=== PATIENT | male | born 1945 | race African-American/Black ===

== ENCOUNTER 2019-07-01 15:37 | Inpatient (IN) | payer OTHER ==
[~2019-07-01] VITALS: Ht 185.4 cm; Wt 88.9 kg
--- NOTE | 2019-07-01 15:42 | NUR ---
PT BIBA TO BED 04.
[2019-07-01 16:20] VITALS: BP 142/78
--- NOTE | 2019-07-01 16:20 | NUR ---
74 Y/O BIB ALS FROM [facility] IN [facility]. STAFF CALLED 911 DUE TO HYPERNATREMIA. PT IS AAOX0. HX DEMENTA. RESP EVEN AND UNLABORED. DENIES CP/SOB. BOWEL SOUNDS NORMO ACTIVE IN ALL QUADRANTS. LUNG SOUNDS CLEAR IN BILAT LOBES. PMH: ESRD, DM, DEMENTA, CVA, RIGHT SIDED WEAKNESS.
--- NOTE | 2019-07-01 17:10 | NUR ---
Note undone in EDM - 07/01/19 at 1711 by [email or web address] 74 Y/O BIB ALS FROM [facility] IN [facility]. STAFF CALLED 911 DUE TO HYPERNATREMIA. PT IS AAOX0. HX DEMENTA. RESP EVEN AND UNLABORED. DENIES CP/SOB. BOWEL SOUNDS NORMO ACTIVE IN ALL QUADRANTS. LUNG SOUNDS CLEAR IN BILAT LOBES. PMH: ESRD, DM, DEMENTA, CVA, RIGHT SIDED WEAKNESS.
--- NOTE | 2019-07-01 17:35 | NUR ---
ATTEMPTED STRAIGHT CATHETERIZATION TO OBTAIN URINE SAMPLE. RESISTANCE MET AND UNABLE TO COLLECT URINE. ERMD NOTIFED. NO FURTHER ACTION ORDERED.
--- NOTE | 2019-07-01 17:54 | NUR ---
PT LAYING IN BED. RESP EVEN AND UNLABORED. EYES OPEN SPONTANEOUSLY. VSS. ALL NEEDS MET AT THIS TIME.
--- NOTE | 2019-07-01 17:56 | NUR ---
ASSUMED CARE OF PT FROM DERRICK JOHNSON.
[2019-07-01 18:10] LABS: BASOPHILS % (AUTO) 0.5 % (0.0-2.0); EOSINOPHILS % (AUTO) 0.3 % (0.0-4.0); HEMATOCRIT 46.2 % (36-52); HEMOGLOBIN 14.7 g/dL (12.0-18.0); LYMPHOCYTES % (AUTO) 13.9 % (20.5-51.1); MEAN CORPUSCULAR HEMOGLOBIN 28 pg (27-31); MEAN CORPUSCULAR HGB CONC 32 g/dL (33-37); MEAN CORPUSCULAR VOLUME 89.1 fL (80-94); MONOCYTES # (AUTO) 0.3 K/uL (0.8-1.0); MONOCYTES % (AUTO) 4.6 % (1.7-9.3); NEUTROPHILS % (AUTO) 80.7 % (42.2-75.2); PLATELET COUNT (AUTO) 173 K/uL (140-450); RED BLOOD CELL COUNT(AUTO) 5.19 MIL/uL (4.20-6.10); RED CELL DISTRIBUTION WIDTH 16.2 % (11.6-13.7); WHITE BLOOD COUNT (AUTO) 7.5 K/uL (4.8-10.8)
[2019-07-01 18:35] LABS: ALBUMIN 2.6 g/dL (3.4-5.0); ASPARTATE AMINOTRANSFERASE 19 U/L (15-37); CARBON DIOXIDE 24.4 mmol/L (21-32); CHLORIDE 128 mmol/L (98-107); CREATININE 3.2 mg/dL (0.6-1.3); GLUCOSE 345 mg/dL (74-106); POTASSIUM 4.4 mmol/L (3.5-5.1); TOTAL BILIRUBIN 0.2 mg/dL (0.0-1.0)
[2019-07-01 18:38] LABS: PROTHROMBIN TIME 10.3 secs (10.8-13.4)
[2019-07-01 18:40] LABS: SODIUM SERUM 165 mmol/L (136-145); UREA NITROGEN, BLOOD 96 mg/dL (7-18)
--- NOTE | 2019-07-01 18:56 | NUR ---
PT REMAINS IN BED--VSS. NO DISTRESS.
[2019-07-01] MEDS ORDERED: ONDANSETRON 4 MG/2 ML VIAL IVP PRN (19:05)
[2019-07-01] MEDS ORDERED: ACETAMINOPHEN 325 MG TAB PO PRN (19:05)
[2019-07-01] MEDS ORDERED: NACL 0.45% 1,000 ML IV ONE (19:05)
[2019-07-01] MEDS ORDERED: INSULIN REGULAR, HUMAN 100 UNIT/ML VIAL SUBQ ONE (19:10)
[2019-07-01] MEDS ORDERED: NACL 0.9% 500 ML IV ONE (19:10)
[2019-07-01] MEDS ORDERED: ASPIRIN 81 MG TAB.CHEW PO ONE (19:10)
--- NOTE | 2019-07-01 19:10 | NUR ---
REPORT TO DERRICK GOLDSMITH AND DERRICK RODRIGUEZ. ALL CARE TRANSFERRED AT THIS TIME.
[2019-07-01] MEDS ORDERED: DEXTROSE 5% 1,000 ML IV ONE (19:15)
[2019-07-01 19:44] LABS: FREE T4 (FREE THYROXINE) 0.93 ng/dL (0.76-1.46); MAGNESIUM 2.6 mg/dL (1.8-2.4); PHOSPHORUS 4.3 mg/dL (2.5-4.9); THYROID STIMULATING HORMONE 1.23 uIU/mL (0.34-3.74)
--- NOTE | 2019-07-01 20:00 | NUR ---
RECEIVED BEDSIDE REPORT FROM ED NURSE MICHAEL. PATIENT WAS BROUGHT INTO UNIT VIA GURNEY. NO SOB OR DISTRESS NOTED. ON ROOM AIR. PATIENT IS BEDBOUND. IV ACCESS ON LEFT AC 20 GAUGE, PATENT, INTACT AND INFUSING WELL. PATIENT IS APHASIC. MRSA NARES DONE AND SENT TO LAB. INITIAL ASSESSMENT DONE. SKIN IS INTACT. PATIENT IS NOTED WITH ANKLE MONITOR ON RIGHT ANKLE. BED IN LOW, SAFETY MEASURES IN PLACE. CALL LIGHT PLACED WITHIN PATIENT REACH. WILL CONTINUE TO MONITOR PATIENT.
--- NOTE | 2019-07-01 20:22 | NUR ---
Patient will be admitted to care of DR. BUCKLEY. Admited to MED-SURG. Will go to room 110-A. Belongings list completed. Report to DERRICK HERNANDEZ.
[2019-07-01] MEDS: BLOOD GLUCOSE MONITORING 1 DEV DEV FS SCH (21:00)
[2019-07-01] MEDS ORDERED: CHOL200074 PO ×2 (21:04→21:20)
[2019-07-01] MEDS ORDERED: FINA5TAB1 PO (21:04)
[2019-07-01] MEDS ORDERED: ORE25 PO (21:04)
[2019-07-01] MEDS ORDERED: SULF-47 PO (21:04)
[2019-07-01] MEDS ORDERED: HYDR25SU37 RC ×2 (21:04→21:20)
[2019-07-01] MEDS ORDERED: APIX5TAB PO (21:04)
[2019-07-01] MEDS ORDERED: FAMO20TA13 PO (21:04)
[2019-07-01] MEDS ORDERED: CALC500C17 PO ×2 (21:04→21:20)
[2019-07-01] MEDS ORDERED: INSU-1163 SQ (21:04)
[2019-07-01] MEDS ORDERED: INSU100S22 SUBQ (21:04)
[2019-07-01] MEDS ORDERED: MIRABULK PO ×2 (21:04→21:20)
[2019-07-01] MEDS ORDERED: SULF-58 PO (21:04)
[2019-07-01] MEDS ORDERED: SENN-46 PO (21:04)
[2019-07-01] MEDS ORDERED: DEC1 PO ×2 (21:04→21:20)
[2019-07-01] MEDS ORDERED: HYDROCORTISONE SUPPOSITORY 25 MG SUPP RC SCH (21:10)
[2019-07-01] MEDS ORDERED: CALCIUM CARBONATE 500 MG TAB.CHEW PO PRN (21:10)
[2019-07-01] MEDS ORDERED: SULF-59 PO (21:20)
[2019-07-01] MEDS: DOCUSATE SODIUM 100 MG GELCAP PO SCH (21:22)
[2019-07-01] MEDS: INSULIN LISPRO SLIDING SCALE 100 UNITS/ML VIAL SUBQ PRN (22:50)
--- NOTE | 2019-07-01 22:50 | NUR ---
PATIENT HAD A BLOOD GLUCOSE RESULT OF 154 WITH 2 UNITS OF REGULAR HUMALOG INSULIN ADMINISTERED. WILL CONTINUE TO MONITOR PATIENT.
[2019-07-01 23:16] LABS: CARBON DIOXIDE 27.5 mmol/L (21-32); CHLORIDE 129 mmol/L (98-107); CREATININE 3.2 mg/dL (0.6-1.3); GLUCOSE 197 mg/dL (74-106); POTASSIUM 4.5 mmol/L (3.5-5.1)
[2019-07-01] MEDS: INSULIN LANTUS 100 UNITS/ML 10 ML VIAL SUBQ SCH (23:31)
[2019-07-02] VITALS: BP 135/89
--- NOTE | 2019-07-02 | NUR ---
VITALS DONE. NO SOB OR DISTRESS NOTED. WILL CONTINUE TO MONITOR PATIENT.
--- NOTE | 2019-07-02 00:07 | NUR ---
CODI FROM LAB CALLED WITH CRITICAL LAB OF TROPONIN-0.077, SODIUM-168 AND BUN-90. MADE AWARE. WILL CONTINUE TO MONITOR PATIENT.
[2019-07-02 00:08] LABS: SODIUM SERUM 168 mmol/L (136-145); UREA NITROGEN, BLOOD 90 mg/dL (7-18)
[2019-07-02] MEDS: DEXTROSE 5% 1,000 ML IV SCH ×3 (00:10→16:14)
--- NOTE | 2019-07-02 02:45 | NUR ---
ROUNDS DONE. VISIBLE CHEST RISE AND FALL NOTED. CALL LIGHT WITHIN PATIENT REACH. WILL CONTINUE TO MONITOR PATIENT.
--- NOTE | 2019-07-02 06:16 | NUR ---
DEXTROSE 50% GIVEN AT THIS TIME FOR BLOOD GLUCOSE RESULT OF 55. WILL CONTINUE TO MONITOR PATIENT. Addendum: 07/02/19 at 0621 by Mabel Addison RN MD DR. RANDOLPH MADE AWARE.
[2019-07-02] MEDS: DEXTROSE 50% 50 ML SYR IVP PRN (06:18)
[2019-07-02] MEDS: BLOOD GLUCOSE MONITORING 1 DEV DEV FS SCH ×4 (06:52→21:31)
--- NOTE | 2019-07-02 06:52 | NUR ---
RECHECKED PATIENTS BLOOD GLUCOSE WITH RESULT OF 122. PATIENT IN STABLE CONDITION. WILL CONTINUE TO MONITOR PATIENT.
--- NOTE | 2019-07-02 06:53 | NUR ---
PATIENT IN STABLE CONDITION. VISIBLE CHEST RISE AND FALL NOTED. NO DISTRESS NOTED. CALL LIGHT WITHIN PATIENT REACH. WILL ENDORSE TO AM SHIFT NURSE FOR CONTINUITY OF CARE.
--- NOTE | 2019-07-02 07:10 | NUR ---
RECEIVED REPORT FROM ROLLER MECHANIC NURSE. PATIENT IS AWAKE AND ALERT IN BED WITH NO SIGNS OF DISTRESS. RESPIRATIONS ARE EVEN AND UNLABORED AND PT IS ON ROOM AIR. SKIN IS INTACT WITH L. AC 20 GAUGE IV. IV SITE IS PATENT AND ASYMPTOMATIC WITH FLUIDS RUNNING PER ORDER. BED IS IN LOW, SEMI-FOWLERS WITH SAFETY MEASURES IN PLACE, CALL LIGHT WITHIN REACH, AND WILL CONTINUE TO MONITOR.
[2019-07-02] MEDS ORDERED: HYDROCORTISONE SUPPOSITORY 25 MG SUPP RC PRN (07:33)
[2019-07-02 07:48] LABS: BASOPHILS # (AUTO) 0.1 K/uL (0.00-0.22); BASOPHILS % (AUTO) 0.9 % (0.0-2.0); EOSINOPHILS % (AUTO) 0.4 % (0.0-4.0); HEMATOCRIT 44.2 % (36-52); HEMOGLOBIN 14.1 g/dL (12.0-18.0); LYMPHOCYTES # (AUTO) 1.2 K/uL (2.0-11.5); LYMPHOCYTES % (AUTO) 16.3 % (20.5-51.1); MEAN CORPUSCULAR HEMOGLOBIN 28 pg (27-31); MEAN CORPUSCULAR HGB CONC 32 g/dL (33-37); MEAN CORPUSCULAR VOLUME 88.8 fL (80-94); MONOCYTES # (AUTO) 0.4 K/uL (0.8-1.0); MONOCYTES % (AUTO) 5.1 % (1.7-9.3); NEUTROPHILS # (AUTO) 5.6 K/uL (1.8-7.7); NEUTROPHILS % (AUTO) 77.3 % (42.2-75.2); PLATELET COUNT (AUTO) 164 K/uL (140-450); RED BLOOD CELL COUNT(AUTO) 4.98 MIL/uL (4.20-6.10); RED CELL DISTRIBUTION WIDTH 16.2 % (11.6-13.7); WHITE BLOOD COUNT (AUTO) 7.2 K/uL (4.8-10.8)
--- NOTE | 2019-07-02 08:14 | NUR ---
PATIENT HAS BEEN SCREENED AND CATEGORIZED HIGH NUTRITION RISK. PATIENT WILL BE SEEN WITHIN 1-2 DAYS OF ADMISSION. 07/02/19-07/03/[address]
[2019-07-02 08:29] LABS: CHOL/HDL RATIO 3.7 (1-4.5); MAGNESIUM 2.6 mg/dL (1.8-2.4); PHOSPHORUS 4.4 mg/dL (2.5-4.9)
[2019-07-02 08:38] LABS: ANION GAP 12.2 (8-16); CARBON DIOXIDE 28.5 mmol/L (21-32); CHLORIDE 130 mmol/L (98-107); GLUCOSE 145 mg/dL (74-106); POTASSIUM 3.7 mmol/L (3.5-5.1)
--- NOTE | 2019-07-02 08:44 | NUR ---
CRITICAL LAB: NA IS 167, BUN IS 82. WILL INFORM RESIDENT DOCTOR
[2019-07-02 08:45] LABS: SODIUM SERUM 167 mmol/L (136-145)
[2019-07-02 08:46] LABS: UREA NITROGEN, BLOOD 82 mg/dL (7-18)
[2019-07-02] MEDS: POLYETHYLENE GLYCOL 17 GM/PKT PO SCH (09:00)
[2019-07-02] MEDS ORDERED: DEXAMETHASONE 1 MG TAB PO SCH ×2 (09:00→13:00)
[2019-07-02] MEDS ORDERED: HYDROCHLOROTHIAZIDE 25 MG TAB PO SCH (09:00)
[2019-07-02] MEDS: SENNA 8.6 MG TAB PO SCH ×2 (09:34→21:30)
[2019-07-02] MEDS: DOCUSATE SODIUM 100 MG GELCAP PO SCH ×2 (09:34→21:30)
[2019-07-02] MEDS: FINASTERIDE 5 MG TAB PO SCH (09:34)
[2019-07-02] MEDS: CHOLECALCIFEROL 1,000 IU TAB PO SCH (09:34)
[2019-07-02] MEDS: PSYLLIUM 12.2 GM/PKT PO SCH (09:35)
[2019-07-02] MEDS: APIXABAN 2.5 MG TAB PO SCH ×2 (09:36→21:32)
--- NOTE | 2019-07-02 09:36 | NUR ---
GIVEN MORNING MEDICATIONS. PATIENT REFUSED HEPARIN, METAMUCIL. DECADRON IS UNAVAILABLE. PHARMACY AWARE. DR. LANGFORD IS AWARE
--- NOTE | 2019-07-02 11:00 | NUR ---
CALLED PHARMACY REGARDING'S PATIENT' GABRIEL DEXAMETHASONE. MS. DAVIS STATED THAT THEY BORROWED ONE FROM [facility]. ONCE THE MEDICATION IS AVAILABLE, THEY WILL CHANGE SCHEDULED TIME
--- NOTE | 2019-07-02 11:20 | NUR ---
BLOOD SUGAR CHECK: 207. WILL GIVE INSULIN COVERAGE
[2019-07-02] MEDS: INSULIN LISPRO SLIDING SCALE 100 UNITS/ML VIAL SUBQ PRN ×2 (11:22→21:39)
--- NOTE | 2019-07-02 11:24 | NUR ---
ADMINISTERED MEDICATION PER PARAMETER ORDER AND TOLERATED WELL. PT IS AWAKE IN BED WITH NO COMPLAINTS OF PAIN. SAFETY MEASURES IN PLACE, CALL LIGHT WITHIN REACH, AND WILL CONTINUE TO MONITOR.
--- NOTE | 2019-07-02 11:51 | NUR ---
Analytics Director Note: Patient is a 74-year-old male admitted for hypernatremia. Patient has CVA w/ right hemiplegia, diabetes, dementia, and hypertension. Patient was admitted from [facility]. FERNANDO contacted Rissa from admissions [phone] and left . FERNANDO will follow up.
[2019-07-02 12:00] VITALS: BP 137/87
[2019-07-02 12:35] LABS: ANION GAP 13.8 (8-16); CARBON DIOXIDE 26.1 mmol/L (21-32); CHLORIDE 130 mmol/L (98-107); GLUCOSE 135 mg/dL (74-106); POTASSIUM 3.9 mmol/L (3.5-5.1)
[2019-07-02 12:38] LABS: SODIUM SERUM 166 mmol/L (136-145); UREA NITROGEN, BLOOD 79 mg/dL (7-18)
--- NOTE | 2019-07-02 12:38 | NUR ---
CRITICAL LAB: SODIUM 166. WILL INFORM RESIDENT
--- NOTE | 2019-07-02 13:04 | NUR ---
CALLED CALLIE ARROYO BUT NO ANSWER. THIS IS REGARDING ADMISSION PAPERWORK. WILL TRY AGAIN
--- NOTE | 2019-07-02 13:05 | NUR ---
*S.T. BEDSIDE SWALLOW EVAL COMPLETED* Pt presents w/ moderate oropharyngeal dysphagia c/b prolonged mastication of solids with residue on R side of oral cavity. Delayed pharyngeal swallow initiation observed across all textures. No coughing/choking/wet voice after swallows.Pt has strong desire to self-feed but has difficulty w/ limited LUE ROM. With time and allowing pt to try, he is able to self-feed and prefers to drink from a cup w/o straw. Recommend: 1) Downgrade diet texture to Mechanical soft ground diet, thin liquids okay. No straws. 2) P.O. meds whole one at a time. 3) Nsg to assist pt w/ positioning and tray set up to promote self-feeding w/ LUE. No further tx indicated at this time. DC to nsg care. Endorsed to DERRICK Orta. TIME [id number]
--- NOTE | 2019-07-02 13:11 | NUR ---
MR. DINA LEDESMA, HANDSTITCHING MACHINE ARMHOLE FELLER, STATED TO CALL SARAN CHRISTIE FOR CONTACT INFORMATION OF FAMILY OF THE PATIENT WHO WILL BE ABLE TO SIGN ADMISSION PAPERWORK
--- NOTE | 2019-07-02 13:13 | NUR ---
PT IS AWAKE, ALERT, AND LAYING IN BED. MEDICATIONS ADMINISTERED PER ORDER AND TOLERATED WELL. NO SIGNS OF DISTRESS NOTED USING. SAFETY MEASURES IN PLACE, CALL LIGHT WITHIN REACH, AND WILL CONTINUE TO MONITOR.
--- NOTE | 2019-07-02 13:19 | NUR ---
CALLED JULIO CESAR CHRISTIE. ONE OF THE PERSONNEL STATED THAT THERE IS NO FAMILY MEMBER LISTED IN PATIENT'S CONTACT INFORMATION. WILL INFORM CHARGE NURSE AND ADMITTING.
--- NOTE | 2019-07-02 13:22 | NUR ---
MADE AWARE ADMITTING FRONT LOBBY REGARDING'S PATIENT'S ADMISSION PAPERWORK
--- NOTE | 2019-07-02 13:48 | NUR ---
07/02/19 RD INITIAL ASSESSMENT COMPLETED PLEASE REFER TO NUTRITION ASSESSMENT UNDER CARE ACTIVITY FOR ESTIMATED NUTRITIONAL NEEDS. 1. CONTINUE CCHO 60GM CARDIAC MECHANICAL SOFT/GROUND DIET W/GLUCERNA BID TOLERATED 2. PROVIDE ASSISTANCE POSITIONING FOOD ON TRAY FOR PATIENT TO SELF FEED 3. PROVIDE ASSISTANCE TO FEED PATIENT IF NEEDED 4. RD TO FOLLOW-UP 2-3 DAYS, HIGH RISK BIBIANA CORDERO, NAYA
--- NOTE | 2019-07-02 14:27 | NUR ---
HANG NEW IV BAG OF D5 AT RATE OF 120 ML/HR. PATIENT IS SLEEPING AT THIS TIME. NO SIGNS OF DISTRESS NOTED. BED IN LOW POSITION. CALL LIGHT IS WITHIN REACH. WILL CONTINUE TO MONITOR
[2019-07-02] MEDS ORDERED: NACL 0.45% 1,000 ML IV SCH (15:02)
--- NOTE | 2019-07-02 15:09 | NUR ---
BOLUSED WITH NS 0.45% WIDE OPEN PER DR. MARQUES ORDER. PATIENT IS AWARE THAT I NEED A SAMPLE OF HIS URINE. URINAL AT BEDSIDE
--- NOTE | 2019-07-02 15:18 | NUR ---
ULTRASOUND AT BEDSIDE
--- NOTE | 2019-07-02 16:25 | NUR ---
BLOOD SUGAR CHECK: 84. NO INSULIN COVERAGE. STILL BOLUSING PATIENT WITH 0.45% NS.
--- NOTE | 2019-07-02 16:30 | NUR ---
PLACED URINAL WITH PATIENT FOR URINE SAMPLE
--- NOTE | 2019-07-02 16:34 | NUR ---
PER DR. MARQUES, HOLD DIURETICS BECAUSE PATIENT IS DEHYDRATED
--- NOTE | 2019-07-02 17:00 | NUR ---
PLACED PATIENT BACK TO D5W AT 120 ML/HR. BOLUS IS COMPLETE
--- NOTE | 2019-07-02 17:16 | NUR ---
URINE SAMPLE COLLECTED. SENT TO THE LAB
[2019-07-02 17:33] LABS: APPEARANCE,URINE CLEAR (CLEAR); BILIRUBIN,URINE NEGATIVE (NEGATIVE); BLOOD, URINE 1+ (NEGATIVE); COLOR,URINE YELLOW (YELLOW); LEUKOCYTE ESTERASE ,URINE TRACE (NEGATIVE); NITRITE, URINE NEGATIVE (NEGATIVE); UGLUCOSE NEGATIVE (NEGATIVE)
[2019-07-02 17:51] LABS: RBC,URINE 11-20 (MOD) /HPF (0-5)
--- NOTE | 2019-07-02 19:16 | NUR ---
REPORT GIVEN TO TRANSITIONAL NURSE NURSE. PT IS ASLEEP IN BED WITH NO SIGNS OF DISTRESS NOTED. IVF IS ASYMPTOMATIC AND RUNNING PER ORDERS. PT IS IN STABLE CONDITION WITH SAFETY MEASURES IN PLACE AND CALL LIGHT WITHIN REACH.
--- NOTE | 2019-07-02 19:17 | NUR ---
RECD. RESTING IN BED, AWAKE, A/OX1, RESPIRATION EVEN AND UNLABORED. IV OF DEXTROSE AT 120 ML/HR INFUSING, LEFT AC G20. REORIENTED TO HOSPITAL SETTING. SAFETY MEASURES ENFORCED. SIDE RAILS UP. BED IN THE LOWEST POSITION. BED ON ALARM. PLAN OF CARE DISCUSSED. NEEDS REINFORCEMENT. DENIES PAIN 0/10.
--- NOTE | 2019-07-02 19:40 | NUR ---
SET UP BEDSIDE TABLE WITH FOOD. ENCOURAGED TO EAT. ABLE TO SWALLOW WELL. ABLE TO EAT 60% OF DINNER.
[2019-07-02 20:00] VITALS: BP 136/85
--- NOTE | 2019-07-02 20:00 | NUR ---
Patient's Plan of Care was discussed and reviewed with SEAT INSTALLER: ADEA WILL CONTINUE WITH CURRENT POC.
--- NOTE | 2019-07-02 21:20 | NUR ---
INFORMED DR. BLAKE, PATIENT IS ON HEPARIN AND ELIQUIS, WILL DISCONTINUED HEPARIN.
[2019-07-02] MEDS: FAMOTIDINE 20 MG TAB PO SCH (21:30)
[2019-07-02] MEDS: INSULIN LANTUS 100 UNITS/ML 10 ML VIAL SUBQ SCH (21:34)
--- NOTE | 2019-07-02 21:35 | NUR ---
DUE PO MEDICATIONS GIVEN FOR THE NIGHT. TOLERATED WELL, ATE 100% OF SNACK.
[2019-07-02 21:53] LABS: CREATININE,URINE RANDOM 60 mg/dL (30-125); URINE SODIUM, RANDOM 91 mmol/l (40-220)
--- NOTE | 2019-07-03 | NUR ---
SLEEPING COMFORTABLY IN BED.
--- NOTE | 2019-07-03 01:00 | NUR ---
IV INFILTRATED, NEW IV LINE INSERTED BY CHARGE NURSE ZENON, LEFT HAND G22.
[2019-07-03] MEDS: DEXTROSE 5% 1,000 ML IV SCH ×4 (01:10→18:24)
--- NOTE | 2019-07-03 03:00 | NUR ---
STILL RESTING COMFORTABLY SLEEPING IN BED.
[2019-07-03 04:00] VITALS: BP 137/84
--- NOTE | 2019-07-03 05:00 | NUR ---
CONFUSED, BITE HIS IV LINE, GET DISCONNECTED FROM IV. USPS LETTER CARRIER CHANGED BEDDINGS AND GOWN THAT HAS BEEN WET. MADE COMFORTABLE IN BED.
[2019-07-03] MEDS ORDERED: NACL 0.9% 500 ML IV ONE (05:45)
[2019-07-03] MEDS: BLOOD GLUCOSE MONITORING 1 DEV DEV FS SCH ×4 (05:47→21:01)
[2019-07-03 06:43] LABS: BASOPHILS # (AUTO) 0.1 K/uL (0.00-0.22); EOSINOPHILS # (AUTO) 0.1 K/uL (0-0.4); EOSINOPHILS % (AUTO) 0.9 % (0.0-4.0); HEMATOCRIT 40.4 % (36-52); HEMOGLOBIN 13.2 g/dL (12.0-18.0); LYMPHOCYTES # (AUTO) 1.2 K/uL (2.0-11.5); LYMPHOCYTES % (AUTO) 17.6 % (20.5-51.1); MEAN CORPUSCULAR HEMOGLOBIN 29 pg (27-31); MEAN CORPUSCULAR HGB CONC 33 g/dL (33-37); MEAN CORPUSCULAR VOLUME 87.9 fL (80-94); MONOCYTES # (AUTO) 0.4 K/uL (0.8-1.0); MONOCYTES % (AUTO) 5.5 % (1.7-9.3); PLATELET COUNT (AUTO) 151 K/uL (140-450); RED BLOOD CELL COUNT(AUTO) 4.59 MIL/uL (4.20-6.10); RED CELL DISTRIBUTION WIDTH 15.8 % (11.6-13.7); WHITE BLOOD COUNT (AUTO) 6.6 K/uL (4.8-10.8)
[2019-07-03 06:55] LABS: ANION GAP 13.5 (8-16); CARBON DIOXIDE 24.4 mmol/L (21-32); CHLORIDE 123 mmol/L (98-107); CREATININE 2.5 mg/dL (0.6-1.3); GLUCOSE 105 mg/dL (74-106); POTASSIUM 3.9 mmol/L (3.5-5.1); UREA NITROGEN, BLOOD 58 mg/dL (7-18)
[2019-07-03 07:07] LABS: MAGNESIUM 2.1 mg/dL (1.8-2.4); PHOSPHORUS 3.2 mg/dL (2.5-4.9)
--- NOTE | 2019-07-03 07:29 | NUR ---
CONDITION REMAIN STABLE. SAFETY MAINTAINED DURING SHIFT. ENDORSED TO AM SHIFT NURSE FOR CONTINUITY OF CARE.
--- NOTE | 2019-07-03 07:30 | NUR ---
RECEIVED BEDSIDE SHIFT REPORT FROM SANDER OPERATOR NURSE FOR CONTINUATION OF CARE.
[2019-07-03 07:44] LABS: SODIUM SERUM 157 mmol/L (136-145)
--- NOTE | 2019-07-03 07:58 | NUR ---
Received call from Maggi Puga ([facility] police operations officer afloat) checking on pt's ankle monitor due to battery at 0400 this am. Informed Maggi Puga that no wetland scientist available at bedside. Per Maggi Puga, he will need to bring wetland scientist to hospital. Pt in bed, in no distress at this time.
[2019-07-03] MEDS: POLYETHYLENE GLYCOL 17 GM/PKT PO SCH (09:00)
[2019-07-03] MEDS: PSYLLIUM 12.2 GM/PKT PO SCH (09:00)
[2019-07-03] MEDS ORDERED: SULFAMETH/TRIMETH DS 800/160MG 1 TAB PO SCH (09:00)
[2019-07-03] MEDS: APIXABAN 2.5 MG TAB PO SCH ×2 (09:58→21:03)
--- NOTE | 2019-07-03 10:00 | NUR ---
MEDICATIONS CRUSHED AND ADMINISTERED WITH APPLE SAUCE DUE TO POOR SWALLOW EVAL. PATIENT IS AAOX1/2. PATIENT IS ON HOUSE ARREST AND HAS AN ACTIVE SECURED ANKLE MONITOR. PATIENT DENIES PAIN AT THIS TIME. WILL CONTINUE TO MONITOR.
[2019-07-03] MEDS: DOCUSATE SODIUM 100 MG GELCAP PO SCH ×2 (10:19→21:02)
[2019-07-03] MEDS: SENNA 8.6 MG TAB PO SCH ×2 (10:20→21:03)
[2019-07-03] MEDS: DEXAMETHASONE 1 MG TAB PO SCH (10:20)
[2019-07-03] MEDS: CHOLECALCIFEROL 1,000 IU TAB PO SCH (10:20)
[2019-07-03] MEDS: FINASTERIDE 5 MG TAB PO SCH (10:20)
[2019-07-03] MEDS: INSULIN LISPRO SLIDING SCALE 100 UNITS/ML VIAL SUBQ PRN ×2 (11:53→21:16)
--- NOTE | 2019-07-03 12:06 | NUR ---
DISCHARGE PLANNING: THIS IS A 77 Y/O MALE PATIENT FROM [facility], WHO CAME IN DUE TO HYPERNATREMIA. PAST MEDICAL HISTORY INCLUDE DIABETES, CKD, HTN, DEMENTIA, CEREBRAL NEOPLASM AND CVA WITH RIGHT HEMIPLEGIA. INITIAL DIAGNOSIS OF HYPERNATREMIA. CURRENT LABS INCLUDE WBC 6.6, H/H 13.2/40.4, NA/K 157/3.9, BUN/CREA 58/2.5. ON DECADRON, BACTRIM, ELIQUIS. NEPHRO AND CARDIO CONSULTS IN PLACE. MRSA NARES AND URINE C/S PENDING. DC PLAN BACK TO LONGTERM ONCE STABLE. Addendum: 07/03/19 at 1213 by Edwina Sullivan CM RECEIVED A DC ORDER BACK TO [facility] FOR SATURDAY. CLINICALS FAXED TO [facility]. Addendum: 07/03/19 at 1540 by Arlin Cornelius CM DC PLANNING: DC PLAN FOR SATURDAY PT IS ACCEPTED AT [facility] GOING TO ROOM 33C AUTH # FOR TRANSPORT [id number] ARRANGED TRANSPORT WITH [facility] PLACE IT WILL CALL PLS CALL [phone] WHEN PT HAS A DC ORDER.
--- NOTE | 2019-07-03 13:02 | NUR ---
PATIENT IS RESTING IN BED, CALL LIGHT ON AND WITHIN REACH. WILL CONTINUE TO MONITOR.
[2019-07-03 16:00] VITALS: BP 149/81
--- NOTE | 2019-07-03 16:00 | NUR ---
IV FLUID REPLENISHED, RUNNING AT 120 ML/HR. WILL CONTINUE TO MONITOR.
[2019-07-03 18:23] LABS: ANION GAP 13.4 (8-16); CARBON DIOXIDE 25.5 mmol/L (21-32); CHLORIDE 116 mmol/L (98-107); CREATININE 2.3 mg/dL (0.6-1.3); GLUCOSE 156 mg/dL (74-106); POTASSIUM 3.9 mmol/L (3.5-5.1); SODIUM SERUM 151 mmol/L (136-145); UREA NITROGEN, BLOOD 49 mg/dL (7-18)
--- NOTE | 2019-07-03 19:13 | NUR ---
BEDSIDE SHIFT REPORT GIVEN TO SPRAY DRIER NURSE FOR CONTINUATION OF CARE.
--- NOTE | 2019-07-03 19:14 | NUR ---
BEDSIDE SHIFT REPORT RECEIVED FROM [facility] NURSE CURRY FOR CONTINUITY OF CARE. PATIENT AWAKE IN BED. NO SIGNS OF DISTRESS NOTED. SAFETY MEASURES IN PLACE CALL LIGHT WITHIN REACH
[2019-07-03] MEDS ORDERED: CRUSHER, PILL MC ONE (20:57)
[2019-07-03] MEDS: FAMOTIDINE 20 MG TAB PO SCH (21:03)
[2019-07-03] MEDS: INSULIN LANTUS 100 UNITS/ML 10 ML VIAL SUBQ SCH (21:08)
--- NOTE | 2019-07-03 21:16 | NUR ---
ADMINISTERED 2100 MEDICATIONS TO PT WELL 8 UNITS INSULIN COVERAGE FOR BS 331. PT TOLERATED WELL. NO SIGNS OF DISTRESS NOTED. WILL CONTINUE TO MONITOR
--- NOTE | 2019-07-03 23:16 | NUR ---
ROUNDING. PT SLEEPING. EASILY AROUSABLE. NO SIGNS OF DISTRESS NOTED. SAFETY MEASURES IN PLACE. BED ALARM ACTIVE. WILL CONTINUE TO MONITOR
[2019-07-04] VITALS: BP 155/77
[2019-07-04] MEDS: DEXTROSE 5% 1,000 ML IV SCH ×3 (02:10→18:50)
--- NOTE | 2019-07-04 02:49 | NUR ---
ROUNDING. PT SLEEPING. EASILY AROUSABLE. NO SIGNS OF DISTRESS NOTED. SAFETY MEASURES IN PLACE. BED ALARM ACTIVE. WILL CONTINUE TO MONITOR
--- NOTE | 2019-07-04 04:53 | NUR ---
ROUNDING. PT ASLEEP. EASILY AROUSABLE. NO SIGNS OF DISTRESS NOTED RESPIRATIONS EVEN AND UNLABORED. SAFETY MEASURES IN PLACE. BED ALARM ACTIVE.
[2019-07-04] MEDS: BLOOD GLUCOSE MONITORING 1 DEV DEV FS SCH ×4 (05:55→21:40)
[2019-07-04] MEDS: DEXTROSE 50% 50 ML SYR IVP PRN (05:57)
--- NOTE | 2019-07-04 05:57 | NUR ---
BS CHECK PERFORMED RESULTS 44. PT ASYMPTOMATIC. ADMINISTERED D50 PRN IVP PER MD ORDER. PT TOLERATED WELL. WILL CONTINUE TO MONITOR
--- NOTE | 2019-07-04 06:19 | NUR ---
NOTIFIED DR. BLAKE ABOUT BS 44 AND ADMINISTRATION OF D50 PRN. NO NEW ORDERS.
--- NOTE | 2019-07-04 06:30 | NUR ---
BLOOD SUGAR WAS RECHECKED AFTER THE D50 RESULT 152. PT IS IN STABLE CONDITION.
[2019-07-04 06:48] LABS: ANION GAP 13.2 (8-16); CARBON DIOXIDE 24.3 mmol/L (21-32); CHLORIDE 115 mmol/L (98-107); GLUCOSE 51 mg/dL (74-106); MAGNESIUM 1.8 mg/dL (1.8-2.4); POTASSIUM 3.5 mmol/L (3.5-5.1); SODIUM SERUM 149 mmol/L (136-145); UREA NITROGEN, BLOOD 44 mg/dL (7-18)
[2019-07-04 06:50] LABS: BASOPHILS % (AUTO) 0.7 % (0.0-2.0); EOSINOPHILS % (AUTO) 0.3 % (0.0-4.0); HEMATOCRIT 39.8 % (36-52); LYMPHOCYTES # (AUTO) 1.6 K/uL (2.0-11.5); MEAN CORPUSCULAR HEMOGLOBIN 29 pg (27-31); MEAN CORPUSCULAR HGB CONC 33 g/dL (33-37); MEAN CORPUSCULAR VOLUME 87.1 fL (80-94); MONOCYTES # (AUTO) 0.4 K/uL (0.8-1.0); MONOCYTES % (AUTO) 6.5 % (1.7-9.3); NEUTROPHILS # (AUTO) 3.6 K/uL (1.8-7.7); NEUTROPHILS % (AUTO) 64.5 % (42.2-75.2); PLATELET COUNT (AUTO) 138 K/uL (140-450); RED BLOOD CELL COUNT(AUTO) 4.58 MIL/uL (4.20-6.10); RED CELL DISTRIBUTION WIDTH 15.4 % (11.6-13.7); WHITE BLOOD COUNT (AUTO) 5.7 K/uL (4.8-10.8)
--- NOTE | 2019-07-04 07:15 | NUR ---
ENDORSED PT IN STABLE CONDITION TO AM NURSE.
--- NOTE | 2019-07-04 07:16 | NUR ---
RECEIVED REPORT FROM PRINCIPAL ASSOCIATE NURSEEVENS. PT IS IN STABLE CONDITION. RESPIRATIONS EVEN AND UNLABORED, BREATHING TO ROOM AIR. IV INTACT AND PATENT. SAFETY MEASURES IN PLACE. BED IN LOW POSITION, CALL LIGHT WITHIN REACH, BED ALARM ON. WILL CONTINUE TO MONITOR.
[2019-07-04 08:00] VITALS: BP 144/83
--- NOTE | 2019-07-04 09:00 | NUR ---
PATIENT MED DEXAMETHASONE 1 MG NOT AVAILABLE IN PT CASETTE, CALLED PHARMACY.
[2019-07-04] MEDS: APIXABAN 2.5 MG TAB PO SCH ×2 (10:26→21:36)
[2019-07-04] MEDS: DOCUSATE SODIUM 100 MG GELCAP PO SCH ×2 (10:28→21:42)
[2019-07-04] MEDS: SENNA 8.6 MG TAB PO SCH ×2 (10:28→21:42)
[2019-07-04] MEDS: FINASTERIDE 5 MG TAB PO SCH (10:29)
[2019-07-04] MEDS: CHOLECALCIFEROL 1,000 IU TAB PO SCH (10:29)
[2019-07-04] MEDS: PSYLLIUM 12.2 GM/PKT PO SCH (10:30)
[2019-07-04] MEDS: POLYETHYLENE GLYCOL 17 GM/PKT PO SCH (10:30)
[2019-07-04] MEDS: DEXAMETHASONE 1 MG TAB PO SCH (10:31)
--- NOTE | 2019-07-04 11:52 | NUR ---
PT LYING IN BED SLEEP AT THIS TIME. RESPIRATIONS EVEN AND UNLABORED. BED IN LOW POSITION. CALL LIGHT AT BEDSIDE. WILL CONTINUE TO MONITOR.
--- NOTE | 2019-07-04 13:01 | NUR ---
RADIOLOGY ADMINISTRATOR AT BEDSIDE ASSISTING WITH FEEDING. RESPIRATIONS EVEN AND UNLABORED. BED IN LOW POSITION. BE ALARM ON. CALL LIGHT AT BEDSIDE. WILL CONTINUE TO MONITOR.
--- NOTE | 2019-07-04 15:33 | NUR ---
PT LYING IN BED SLEEP AT THIS TIME. RESPIRATIONS EVEN AND UNLABORED. BED IN LOW POSITION. BE ALARM ON. CALL LIGHT AT BEDSIDE. WILL CONTINUE TO MONITOR.
[2019-07-04] MEDS: INSULIN LISPRO SLIDING SCALE 100 UNITS/ML VIAL SUBQ PRN (15:42)
[2019-07-04 16:00] VITALS: BP 142/79
--- NOTE | 2019-07-04 17:20 | NUR ---
HAND RIGGER AT BEDSIDE ASSISTING WITH FEEDING. RESPIRATIONS EVEN AND UNLABORED. BED IN LOW POSITION. BE ALARM ON. CALL LIGHT AT BEDSIDE. WILL CONTINUE TO MONITOR.
--- NOTE | 2019-07-04 19:34 | NUR ---
GAVE REPORT TO CYBER INSTRUCTOR NURSE, AMANDA FOR CONTINUITY OF CARE. PT IN STABLE CONDITION.
--- NOTE | 2019-07-04 19:35 | NUR ---
RECEIVED REPORT FROM MAXWELL MEZA DAYSHIFT NURSE AT BEDSIDE FOR CONTINUITY OF CARE, PT IN STABLE CONDITION. PT HAS NO S/S OF PAIN OR DISTRESS NOTED, ALL FALLS PRECAUTIONS IN PLACE AND CALL LUNDBERG IN REACH.
--- NOTE | 2019-07-04 21:30 | NUR ---
PT IN BED AOX1 NO S/S OF PAIN OR DISTRESS NOTED. IV SITE 18G ON LAC INTACT AND RUNNING D5 AT 120MLS/HR. PT FINGERSTICK IS 144. HE WAS ASSISTED WITH DIABETIC SNACK OF PUDDING AND GIVEN HIS ORDERED LANTUS SQ. PT TOOK ORDERED MEDS CRUSHED. PT DUE ELIQUIS AND PLATELETS AT 138. MD RAE SAID OK TO GIVE PT HAS NO S/S OF BRUISING OR BLEEDING. PT WAS TURNED, CHANGED AND REPOSITIONED IN BED. ANKLE MONITOR REMAINS ON RIGHT ANKLE INTACT . ALL FALLS PRECAUTIONS IN PLACE.
[2019-07-04] MEDS: INSULIN LANTUS 100 UNITS/ML 10 ML VIAL SUBQ SCH (21:34)
[2019-07-04] MEDS: FAMOTIDINE 20 MG TAB PO SCH (21:42)
[2019-07-05] VITALS: BP 137/73
--- NOTE | 2019-07-05 01:15 | NUR ---
PT WAS TURNED, CHANGED AND REPOSITIONED IN BED, NO S/S OF PAIN OR DISTRESS NOTED. IV SITE INTACT AND D5 RUNNING AT 120 ORDERED. BAG WAS REPLACED WITH NEW BAG. IV SITE INTACT AND ASYMPTOMATIC. ALL FALLS PRECAUTIONS IN PLACE AND ANKLE MONITOR INTACT.
[2019-07-05] MEDS: DEXTROSE 5% 1,000 ML IV SCH ×2 (04:04→11:30)
[2019-07-05] MEDS: BLOOD GLUCOSE MONITORING 1 DEV DEV FS SCH ×3 (05:50→16:28)
--- NOTE | 2019-07-05 06:15 | NUR ---
PT FINGERSTICK IS 81, HE WAS GIVEN WATER TO DRINK AND HE WAS FEED APPLE SAUCE. WILL ENDORSE TO DAYSHIFT TO CONTINUE TO MONITOR B/S. ALL FALLS PRECAUTIONS IN PLACE AND NO S/S OF DISTRESS NOTED.
--- NOTE | 2019-07-05 07:15 | NUR ---
RECEIVED BEDSIDE REPORT FROM NIGHT NURSE. PATIENT IN BED ASLEEP, EASILY AROUSABLE BY NAME OR TOUCH. SKIN WARM AND DRY TOUCH. PER REPORT IV INFILTRATED AT THIS TIME, NOTED EDEMA TO LEFT HAND NO REDNESS. IVF STOPPED AT THIS TIME. PLANS OF CARE DISCUSSED. CALL LIGHT WITHIN REACH. BED IN LOW POSITION. BED ALARM ON. SAFETY MEASURES IN PLACE.
[2019-07-05 07:41] LABS: ANION GAP 12.2 (8-16); CHLORIDE 110 mmol/L (98-107); GLUCOSE 106 mg/dL (74-106); POTASSIUM 4.2 mmol/L (3.5-5.1); SODIUM SERUM 146 mmol/L (136-145); UREA NITROGEN, BLOOD 34 mg/dL (7-18)
[2019-07-05 07:42] LABS: MAGNESIUM 1.8 mg/dL (1.8-2.4)
[2019-07-05 07:44] LABS: BASOPHILS # (AUTO) 0.1 K/uL (0.00-0.22); BASOPHILS % (AUTO) 1.1 % (0.0-2.0); EOSINOPHILS % (AUTO) 0.5 % (0.0-4.0); HEMATOCRIT 41.4 % (36-52); HEMOGLOBIN 13.7 g/dL (12.0-18.0); LYMPHOCYTES # (AUTO) 1.5 K/uL (2.0-11.5); LYMPHOCYTES % (AUTO) 25.2 % (20.5-51.1); MEAN CORPUSCULAR HEMOGLOBIN 29 pg (27-31); MEAN CORPUSCULAR HGB CONC 33 g/dL (33-37); MEAN CORPUSCULAR VOLUME 86.8 fL (80-94); MONOCYTES # (AUTO) 0.4 K/uL (0.8-1.0); MONOCYTES % (AUTO) 6.6 % (1.7-9.3); NEUTROPHILS # (AUTO) 3.9 K/uL (1.8-7.7); NEUTROPHILS % (AUTO) 66.6 % (42.2-75.2); PLATELET COUNT (AUTO) 158 K/uL (140-450); RED BLOOD CELL COUNT(AUTO) 4.76 MIL/uL (4.20-6.10); RED CELL DISTRIBUTION WIDTH 15.3 % (11.6-13.7); WHITE BLOOD COUNT (AUTO) 5.9 K/uL (4.8-10.8)
[2019-07-05 08:00] VITALS: BP 123/82
--- NOTE | 2019-07-05 08:40 | NUR ---
DR. OH MADE AWARE THAT PATIENT'S IV INFILTRATED THIS AM DURING SHIFT CHANGE. PATIENT WITH NO IV ACCESS, PER PATIENT WILL DISCHARGE BACK TO SNF TODAY, NO NEED TO HAVE IV ACCESS NOW.
[2019-07-05] MEDS: DOCUSATE SODIUM 100 MG GELCAP PO SCH (09:06)
[2019-07-05] MEDS: FINASTERIDE 5 MG TAB PO SCH (09:07)
[2019-07-05] MEDS: CHOLECALCIFEROL 1,000 IU TAB PO SCH (09:07)
[2019-07-05] MEDS: POLYETHYLENE GLYCOL 17 GM/PKT PO SCH (09:07)
[2019-07-05] MEDS: SENNA 8.6 MG TAB PO SCH (09:07)
[2019-07-05] MEDS: PSYLLIUM 12.2 GM/PKT PO SCH (09:08)
[2019-07-05] MEDS: DEXAMETHASONE 1 MG TAB PO SCH (09:11)
[2019-07-05] MEDS: APIXABAN 2.5 MG TAB PO SCH (09:16)
--- NOTE | 2019-07-05 09:45 | NUR ---
PATIENT RECEIVED ALL AM MEDICATIONS. TOLERATED WELL. NO DISTRESS NOTED. SAFETY MEASURES IN PLACE. WILL CONTINUE TO MONITOR.
--- NOTE | 2019-07-05 12:01 | NUR ---
07/05/19 RD FOLLOW UP COMPLETED PLEASE REFER TO NUTRITION ASSESSMENT UNDER CARE ACTIVITY FOR ESTIMATED NUTRITIONAL NEEDS. RD RECOMMENDATIONS: 1. CONTINUE CCHO 60 GM CARDIAC MECHANICAL SOFT/GROUND DIET W/GLUCERNA BID TOLERATED 2. PROVIDE ASSISTANCE TO FEED PATIENT IF NEEDED 3. PROVIDE ASSISTANCE POSITIONING FOOD ON TRAY FOR PATIENT TO SELF FEED IF NEEDED 4. RD TO FOLLOW-UP 2-3 DAYS, HIGH RISK VAIBHAV TRIMBLE, RD
--- NOTE | 2019-07-05 12:10 | NUR ---
PATIENT AWAKE, ALERT X1, WITH GARBLED SPEECH. NO S/S OF DISTRESS NOTED. BG CHECKED. SAFETY MEASURES IN PLACE. CALL LIGHT WITHIN REACH.
--- NOTE | 2019-07-05 14:30 | NUR ---
REPORT GIVEN TO DERRICK WATSON FOR CONTINUITY OF CARE IN [facility]. PATIENT TO BE DISCHARGE TODAY ORDERED.
--- NOTE | 2019-07-05 14:35 | NUR ---
CALLED [facility] FOR CREDIT RATING CHECKER AND TIME. PER [facility] THEY WILL CALL BACK IF ABLE TO FIND TRANSPORTATION CREDIT RATING CHECKER TIME.
--- NOTE | 2019-07-05 15:00 | NUR ---
NOTIFIED CHARGE NURSE IN REGARDS TO [facility] UNABLE TO PROVIDE TRANSPORTATION FOR PATIENT TODAY.
--- NOTE | 2019-07-05 15:00 | NUR ---
CHARGE NURSE ABLE TO CONTACT A TRANSPORTATION TIME ASSURANCE SENIOR @ [id number].
--- NOTE | 2019-07-05 15:30 | NUR ---
CALLED CALLIE ARROYO PATIENT'S CONTACT, NO ANSWER. LEFT MESSAGE REGARDING PATIENT TRANSFER BACK TO [facility].
--- NOTE | 2019-07-05 15:30 | NUR ---
ROUNDS MADE. PATIENT IS AWAKE, ALERT, ORIENTED X1. NO DISTRESS NOTED. SAFETY MEASURES IN PLACE.
[2019-07-05 16:00] VITALS: BP 107/69
--- NOTE | 2019-07-05 17:30 | NUR ---
PATIENT ASLEEP, RESPIRATION EVEN AND UNLABORED. AROUSABLE BY NAME OR TOUCH. NO S/S OF DISTRESS NOTED.
--- NOTE | 2019-07-05 19:00 | NUR ---
PT IN STABLE CONDITION. INSIGHTS STRATEGIST AT 1900. WILL ENDORSE TO NIGHT NURSE FOR CONTINUITY OF CARE.
--- NOTE | 2019-07-05 19:15 | NUR ---
RECEIVED REPORT FROM DAY SHIFT NURSE. PATIENT IS FOR DISCHARGE AWAITING FOR TRANSPORT. ALL DISCHARGE DOCUMENTS READY. NO SIGNS AND SYMPTOMS OF DISTRESS NOTED. WILL CONTINUE TO MONITOR.
--- NOTE | 2019-07-05 20:33 | NUR ---
[facility] ARRIVED TO OPERATIONS ASSISTANT PATIENT. PATIENT HEADING TO [facility]. BELONGINGS AND DOCUMENTS GIVEN. PATIENT HAS LEFT ANKLE BRACELET. IV REMOVED. PATIENT IN STABLE CONDITION.
== END 2019-07-05 20:35 | DRG 682 ==
LOC: MED 15:37 → MTU 19:14
PROVIDERS: ADMIT General Practice; ATTEND General Practice
DX: N17.0 Acute kidney failure with tubular necrosis (principal); I21.A1 Myocardial infarction type 2; E43 Unspecified severe protein-calorie malnutrition; E87.0 Hyperosmolality and hypernatremia; I69.351 Hemiplegia and hemiparesis following cerebral infarction affecting right dominant side; C71.0 Malignant neoplasm of cerebrum, except lobes and ventricles; Z68.25 Body mass index [BMI] 25.0-25.9, adult; E11.22 Type 2 diabetes mellitus with diabetic chronic kidney disease; E86.0 Dehydration; E86.1 Hypovolemia; F03.90 Unspecified dementia, unspecified severity, without behavioral disturbance, psychotic disturbance, mood disturbance, and anxiety; I12.9 Hypertensive chronic kidney disease with stage 1 through stage 4 chronic kidney disease, or unspecified chronic kidney disease; E11.65 Type 2 diabetes mellitus with hyperglycemia; Z66 Do not resuscitate; N31.9 Neuromuscular dysfunction of bladder, unspecified; K64.9 Unspecified hemorrhoids; K21.9 Gastro-esophageal reflux disease without esophagitis; E83.41 Hypermagnesemia; N18.3 Chronic kidney disease, stage 3 (moderate); Z87.891 Personal history of nicotine dependence; Z86.711 Personal history of pulmonary embolism
CPT/HCPCS: 36415; 71045; 76770; 80048; 80053; 81001; 82150; 82570; 82948; 83036; 83690; 83735; 83880; 84100; 84300; 84439; 84443; 84484; 85025; 85610; 85730; 87081; 87086; 92610; 93005; 96372; 97110; 97112; 97161-GP; 97530; 99285; J1644; J1815; J7030; J7060; Q0092